=== PATIENT | female | born 1990 | race Caucasian/White ===

== ENCOUNTER 2021-09-13 17:10 | Observation (INO) | payer BC ==
[~2021-09-13] VITALS: Ht 165.1 cm; Wt 70.3 kg
[2021-09-13] MEDS ORDERED: PREN1TAB23 PO (20:16)
== END 2021-09-13 20:30 | disposition home or self-care (01) ==
LOC: 8 EST LDRP 17:10
PROVIDERS: ADMIT Specialist; ATTEND Specialist
DX: O42.913 Preterm premature rupture of membranes, unspecified as to length of time between rupture and onset of labor, third trimester (principal); Z79.899 Other long term (current) drug therapy; Z3A.31 31 weeks gestation of pregnancy
CPT/HCPCS: 76805; 76818; 99281; G0378; 59025